=== PATIENT | female | born 1990 | race Two or more races ===

== ENCOUNTER 2019-06-23 17:20 | Emergency (ER) | payer OTHER ==
[~2019-06-23] VITALS: Ht 152.4 cm; Wt 62.6 kg
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
[2019-06-23] MEDS ORDERED: HYDROCODONE/APAP 5/325MG 1 EACH TABLET ONE (17:48)
[2019-06-23] MEDS ORDERED: TDAP [DIPH/PERTUSSIS/TET] 0.5 ML VIAL IM ONE ×2 (17:48→18:00)
[2019-06-23] MEDS ORDERED: ACETAMINOPHEN ES 500 MG TABLET ONE (17:52)
[2019-06-23] MEDS ORDERED: HYDROCODONE/APAP 5/325MG 1 EACH TABLET PO ONE (18:00)
[2019-06-23] MEDS ORDERED: LIDOCAINE 1%-EPI 1:100,000 20 ML VIAL TP ONE (18:00)
[2019-06-23] MEDS ORDERED: BACITRACIN ZINC OINT PACKET 1 EA PACKET TP ONE ×2 (19:30→19:31)
[2019-06-23 19:48] VITALS: BP 124/69
== END 2019-06-23 19:48 | disposition home or self-care (01) ==
LOC: ER 17:25
DX: S01.111A Laceration without foreign body of right eyelid and periocular area, initial encounter (principal); S50.02XA Contusion of left elbow, initial encounter; S09.8XXA Other specified injuries of head, initial encounter; M54.2 Cervicalgia; R51 Headache; Z98.890 Other specified postprocedural states; V49.49XA Driver injured in collision with other motor vehicles in traffic accident, initial encounter; Y93.89 Activity, other specified; Y92.488 Other paved roadways as the place of occurrence of the external cause; Y99.8 Other external cause status
CPT/HCPCS: 12011; 70450; 70486; 72125; 73080; 84703; 90471; 90715; 99284; A6403

== ENCOUNTER 2019-06-25 10:32 | Emergency (ER) | payer OTHER ==
[~2019-06-25] VITALS: Ht 152.4 cm; Wt 63.0 kg
[2019-06-25 10:35] VITALS: BP 107/76
--- NOTE | 2019-06-25 11:07 | NUR ---
Patient discharged to home in stable condition. Written and verbal after care instructions given. Patient verbalizes understanding of instruction.
== END 2019-06-25 11:07 | disposition home or self-care (01) ==
LOC: ER 10:38
DX: S05.11XA Contusion of eyeball and orbital tissues, right eye, initial encounter (principal); S05.31XD Ocular laceration without prolapse or loss of intraocular tissue, right eye, subsequent encounter; Z98.890 Other specified postprocedural states; V49.49XA Driver injured in collision with other motor vehicles in traffic accident, initial encounter; Y93.89 Activity, other specified; Y92.488 Other paved roadways as the place of occurrence of the external cause; Y99.8 Other external cause status

== ENCOUNTER 2023-06-17 23:49 | Emergency (ER) | payer OTHER ==
[~2023-06-17] VITALS: Ht 152.4 cm; Wt 68.0 kg
[2023-06-18] MEDS ORDERED: IV NS 0.9% 1,000 ML BAG IV ONE (00:30)
[2023-06-18 00:47] LABS: BASOPHILS % (AUTO) 0.2 % (0.0-2.0); HEMATOCRIT 43 % (33-45); LYMPHOCYTES # (AUTO) 1.7 K/uL (0.8-4.8); LYMPHOCYTES % (AUTO) 11.8 % (20.0-44.0); MEAN CORPUSCULAR HEMOGLOBIN 29 PG (26.0-33.0); MEAN CORPUSCULAR HGB CONC 33 g/dl (31.0-36.0); MEAN CORPUSCULAR VOLUME 89 fL (82-100); MONOCYTES # (AUTO) 0.8 K/uL (0.1-1.30); MONOCYTES % (AUTO) 5.6 % (2.0-12.0); NEUTROPHILS # (AUTO) 11.9 K/uL (1.8-8.9); NEUTROPHILS % (AUTO) 82.4 % (43.0-81.0); PLATELET COUNT (AUTO) 250 K/uL (150-450); RED BLOOD CELL COUNT(AUTO) 4.85 MIL/uL (4.0-5.2); RED CELL DISTRIBUTION WIDTH 12.7 % (11.5-15.0); WHITE BLOOD COUNT (AUTO) 14.5 K/uL (4.3-11.0)
[2023-06-18 01:00] LABS: CALCIUM, SERUM 8.9 mg/dL (8.5-10.1); CARBON DIOXIDE 25 mmol/L (21-32); CHLORIDE 102 mmol/L (98-107); CREATININE 0.7 mg/dL (0.6-1.3); GLUCOSE 123 mg/dL (74-106); POTASSIUM 3.4 mmol/L (3.5-5.1); SODIUM SERUM 137 mmol/L (136-145); UREA NITROGEN, BLOOD 11 mg/dL (7-18)
[2023-06-18 01:07] LABS: LACTIC ACID 1.3 mmol/L (0.4-2.0)
[2023-06-18 01:08] LABS: APPEARANCE,URINE CLEAR (CLEAR); BILIRUBIN,URINE NEGATIVE (NEGATIVE); BLOOD, URINE 3+ Ery/uL (NEGATIVE); COLOR,URINE YELLOW (YELLOW); KETONES,URINE NEGATIVE (NEGATIVE); LEUKOCYTE ESTERASE ,URINE NEGATIVE (NEGATIVE); NITRITE, URINE NEGATIVE (NEGATIVE); PH,URINE 7.5 (5.0-8.0); PROTEIN,URINE NEGATIVE (NEGATIVE); UGLUCOSE NEGATIVE (NEGATIVE)
[2023-06-18 01:10] LABS: PREGNANCY TEST URINE QUAL NEGATIVE (NEGATIVE)
[2023-06-18 01:29] LABS: ALANINE AMINOTRANSFERASE 25 U/L (12-78); ALBUMIN 3.6 g/dL (3.4-5.0); ALKALINE PHOSPHATASE 97 U/L (46-116); ASPARTATE AMINOTRANSFERASE 15 U/L (15-37); BILIRUBIN,DIRECT 0.2 mg/dL (0.0-0.2); BILIRUBIN,TOTAL 0.9 mg/dL (0.2-1.0); TOTAL PROTEIN, SERUM 8.4 g/dL (6.4-8.2)
[2023-06-18 01:50] LABS: ADD URINE CULTURE NO; BACTERIA,URINE 1+ /HPF (None Seen); WBC,URINE 0-2 /HPF (0-3)
[2023-06-18] MEDS ORDERED: ACETAMINOPHEN ES 500 MG TABLET PO ONE (02:30)
[2023-06-18] MEDS ORDERED: ACETAMINOPHEN ES 500 MG TABLET ONE (02:33)
[2023-06-18] MEDS ORDERED: AZITHROMYCIN 500 MG in IV D5W 250 ML IV ONE (03:00)
[2023-06-18] MEDS ORDERED: CEFTRIAXONE 1GM BAG (ER ONLY) 1 GM/50 ML PIGGYBACK IV ONE (03:00)
[2023-06-18] MEDS ORDERED: AZITHROMYCIN 500 MG VIAL ONE (03:30)
[2023-06-18] MEDS ORDERED: CEFTRIAXONE 1GM BAG (ER ONLY) 50 ML IV ONE (03:30)
[2023-06-18] MEDS ORDERED: IV NS 0.9% 250 ML IV ONE (05:14)
[2023-06-18] MEDS ORDERED: IOHEXOL-350 100 ML VIAL IV ONE (05:14)
[2023-06-18] MEDS ORDERED: CT SWABBABLE VALVE TRANS SET 1 EA INFUS.SET MC ONE (05:14)
[2023-06-18] MEDS ORDERED: DOXY100C2 PO (06:22)
[2023-06-18 07:39] VITALS: BP 102/61; TEMP 99.8; O2SAT 100
== END 2023-06-18 07:53 | disposition home or self-care (01) ==
LOC: ER 06-18 00:03
DX: R06.02 Shortness of breath (principal); R00.0 Tachycardia, unspecified; Z98.890 Other specified postprocedural states; Z20.822 Contact with and (suspected) exposure to COVID-19
CPT/HCPCS: 99285; 96365; 71275; 71045; 96367; 96361; 87426; 93005; 87804 ×2; 85025; 80048; 87040 ×2; 87086; 83605; 80076; 85378; 84703; 81001; 36415; 84484 ×2; J7050; J0456; A4223; J0696; Q9967; C9803; J7060